=== PATIENT | female | born 1935 | race American Indian/Alaskan Native ===

== ENCOUNTER 2019-09-06 13:54 | Emergency (ER) | payer MEDICARE, BC ==
[~2019-09-06] VITALS: Ht 167.6 cm; Wt 63.5 kg
[~2019-09-06 13:54] MED LIST: ASPI81TA31 PO; CHOL50004 PO; CYAN250010 PO; DILT240C88 PO; FLUO40CA8 PO; GABA-534 PO; RANI300T4 PO; ROSU10TA2 PO
[2019-09-06] MEDS ORDERED: ASPI81TA31 PO (14:16)
[2019-09-06] MEDS ORDERED: EVOL140S SQ (14:16)
[2019-09-06] MEDS ORDERED: DIGO250T PO (14:16)
[2019-09-06] MEDS ORDERED: MECL-102 PO (14:16)
[2019-09-06] MEDS ORDERED: OMEP20TA20 PO (14:16)
[2019-09-06] MEDS ORDERED: DILT240C88 PO (14:16)
[2019-09-06] MEDS ORDERED: ESCI10TA PO (14:16)
[2019-09-06] MEDS ORDERED: CHOL200078 PO (14:16)
[2019-09-06] MEDS ORDERED: IBAN150T16 PO (14:16)
[2019-09-06] MEDS ORDERED: MAGN64TA9 PO (14:16)
[2019-09-06] MEDS ORDERED: UBID100C13 PO (14:16)
[2019-09-06] MEDS ORDERED: GABA-534 PO (14:16)
[2019-09-06] MEDS ORDERED: GABA600T12 PO (14:16)
[2019-09-06] MEDS ORDERED: TDAP DIPH,PERTUSS,TET VAC/PF 0.5 ML DISP.SYRIN IM ONE (14:24)
[2019-09-06] MEDS: LIDOCAINE HCL 2% 20 ML VIAL TP ONE (14:32)
[2019-09-06] MEDS: TDAP DIPH,PERTUSS,TET VAC/PF 0.5 ML DISP.SYRIN IM ONE (14:32)
--- NOTE | 2019-09-06 15:20 | NUR ---
Report given to Mary Anne nurse at [facility] for patient to come back in 2 days for wound check and return 5-7 days.
--- NOTE | 2019-09-06 15:29 | NUR ---
Patient discharged to home in stable conditon. Written and verbal after care instructions given. Patient verbalizes understanding of instructions. Patient wheeled out of dept into a taxi.
[2019-09-06 15:39] VITALS: BP 135/72
== END 2019-09-06 15:40 | disposition home or self-care (01) ==
LOC: ER 13:54
DX: S01.81XA Laceration without foreign body of other part of head, initial encounter (principal); M25.532 Pain in left wrist; M25.531 Pain in right wrist; I25.10 Atherosclerotic heart disease of native coronary artery without angina pectoris; F32.9 Major depressive disorder, single episode, unspecified; Z79.82 Long term (current) use of aspirin; Z79.899 Other long term (current) drug therapy; W18.30XA Fall on same level, unspecified, initial encounter; Y93.89 Activity, other specified; Y92.89 Other specified places as the place of occurrence of the external cause; Y99.8 Other external cause status
CPT/HCPCS: 73110; 90715; A4663